=== PATIENT | male | born 1945 | race Caucasian/White ===

== ENCOUNTER → 2017-03-30 | Day surgery (SDC) | payer MEDICARE, BC ==
[~2017-03-30] MED LIST: ASPIRIN EC81 M1 PO; ASPIRIN PO; FISH OIL 1,0001 CAP PO; KLONOPIN1 M1 PO; LISINOPRIL PO; LO-DOSE ASPIRIN81 M1 PO; NIACIN PO; PEPCID PO; PRINIVIL10 MG PO; PROTONIX PO; REG INSULIN SUBQ; SOLUMEDROL IV; ZOCOR PO; ZOLPIDEM TARTRAT5 MG PO
--- NOTE | ~2017-03-30 | OR ---
Unit #: [id number] #: [id number] Patient: ABEL RENO [id number] [address] [place], [place] [address] [id number] O MR#: [id number] NAME: ABEL RENO ROOM: Date of Procedure: 03/30/2017 Admission Date: 03/30/2017 Surgeon: Alfredo Mccarthy Jr., M.D. : 1945 Attending Physician: Alfredo Mccarthy Jr., M.D. Primary Care Physician: Robin Silver M.D. OPERATIVE REPORT INDICATION FOR PROCEDURE The patient is a 71-year-old white male with a known past history of colon polyps. His last scope was approximately 4 years ago. His polyps had been benign in the past. He also had a history for diverticulosis. He is brought in this time at his request for followup colonoscopy to rule out occult malignancy or new polyps. PREOPERATIVE DIAGNOSIS Past history of colon polyps, rule out recurrence. POSTOPERATIVE DIAGNOSES The patient was noted to have a small polyp of the sigmoid colon at approximately 35 cm and a small polyp of the transverse colon at approximately 60 cm as well as diverticulosis of left colon. No other abnormalities were noted except for external hemorrhoids. ANESTHESIA MAC anesthesia. PROCEDURES PERFORMED Flexible colonoscopy to the distal ileum with biopsies using the cold biopsy forceps of small polyps of the sigmoid colon and transverse colon. DESCRIPTION OF PROCEDURE The patient was positioned in Marquez position with left side down. After being given MAC anesthesia, digital rectal examination was performed, which revealed no palpable mass or tenderness. No blood or stool within the rectal ampulla. The prostate was normal by palpation. The Olympus colonoscope was advanced through the anal canal up the rectum and retroflexed down to the area of the anorectal region. There were no fissures and no evidence of any internal hemorrhoids. The scope was then straightened and advanced up in the rectosigmoid, in the sigmoid and descending colon areas, there were multiple diverticula. At 35 cm or so, there was a small 1 mm polyp which appeared benign was removed with one bite with the cold biopsy forceps. The scope was then advanced around the splenic flexure and the transverse colon, again there was a small polyps just distal to the splenic flexure which was biopsied with one bite with the cold biopsy forceps and removed. There was no bleeding from either of the biopsy sites. The scope was then advanced around the transverse colon to the hepatic flexure, around the hepatic flexure and ascending colon, down in the area of the cecum. The light from the tip of the scope could be seen transilluminating through right lower quadrant abdominal wall Unit #: [id number] #: [id number] Patient: ABEL RENO. The scope was advanced up the distal ileum approximately 10 to 12 inches. There was no evidence of any ileitis or inflammatory bowel disease. The scope was slowly removed. There were no other polyps except for those described above. No tumors, cancer, or AVMs. No evidence of any colitis or acute diverticulitis. The caliber of the colon appeared normal throughout. The scope was removed. The patient tolerated the procedure well and discharged in satisfactory condition. Dictated by... Alfredo Mccarthy Jr., MNessa. ANSON/maribel TD: 03/30/2017 11:47 JOB #: [id number] OPERATIVE REPORT Page 1 of 1 X Alfredo Mccarthy MD X PROCEDURE OPERATIVE NOTE
== END | disposition home or self-care (01) ==
LOC: COPS 05:21
DX: Z12.11 Encounter for screening for malignant neoplasm of colon (principal); D12.3 Benign neoplasm of transverse colon; D12.5 Benign neoplasm of sigmoid colon; K57.30 Diverticulosis of large intestine without perforation or abscess without bleeding; K64.4 Residual hemorrhoidal skin tags; I10 Essential (primary) hypertension; E78.5 Hyperlipidemia, unspecified; M19.90 Unspecified osteoarthritis, unspecified site; Z86.010 Personal history of colon polyps; Z87.19 Personal history of other diseases of the digestive system; Z79.82 Long term (current) use of aspirin; Z88.8 Allergy status to other drugs, medicaments and biological substances; Z79.899 Other long term (current) drug therapy; Z87.01 Personal history of pneumonia (recurrent)
CPT/HCPCS: 88305; J2250